=== PATIENT | female | born 1995 | race Caucasian/White ===

== ENCOUNTER 2021-02-10 10:40 | Emergency (ER) | payer SELFPAY ==
[~2021-02-10] VITALS: Ht 175.3 cm; Wt 77.1 kg
--- NOTE | 2021-02-10 11:00 | NUR ---
Dr Martin at the bedside for MSE.
[2021-02-10] MEDS ORDERED: ONDANSETRON ODT 4 MG TAB.RAPDIS ONE (11:11)
[2021-02-10] MEDS ORDERED: TDAP DIPH,PERTUSS,TET VAC/PF 0.5 ML DISP.SYRIN IM ONE ×2 (11:12→11:15)
[2021-02-10] MEDS ORDERED: MORPHINE SULFATE 4 MG/1 ML DISP.SYRIN ONE (11:12)
[2021-02-10] MEDS ORDERED: ONDANSETRON ODT 4 MG TAB.RAPDIS SL ONE (11:15)
[2021-02-10] MEDS ORDERED: SODIUM BICARBONATE 4.2 % (NEUT) 5 ML VIAL TP ONE (11:15)
[2021-02-10] MEDS ORDERED: MORPHINE SULFATE 4 MG/1 ML DISP.SYRIN IM ONE (11:15)
[2021-02-10] MEDS ORDERED: LIDOCAINE HCL 1% 20 ML VIAL TP ONE (11:15)
[2021-02-10] MEDS ORDERED: LIDOCAINE HCL 1% 20 ML VIAL ONE (11:24)
[2021-02-10] MEDS ORDERED: SODIUM BICARBONATE 4.2 % (NEUT) 5 ML VIAL ONE (11:24)
--- NOTE | 2021-02-10 12:05 | NUR ---
RT foot cleaned and dressing applied per MD request.
--- NOTE | 2021-02-10 12:14 | NUR ---
Patient discharged to home in stable condition. Written and verbal after care instructions given. Patient verbalizes understanding of instructions. Stressed follow up or return to ER for worsening s/s.
[2021-02-10 12:15] VITALS: BP 132/77
== END 2021-02-10 12:15 | disposition home or self-care (01) ==
LOC: ER 10:40
DX: S91.311A Laceration without foreign body, right foot, initial encounter (principal); W25.XXXA Contact with sharp glass, initial encounter; Y92.010 Kitchen of single-family (private) house as the place of occurrence of the external cause
CPT/HCPCS: 12001; 73630; 90471; 90715; 96372; 99284; J2270; J3490 ×2; A4217; A4663; Q0162